=== PATIENT | female | born 1995 | race Caucasian/White ===

== ENCOUNTER 2019-11-24 15:34 | Emergency (ER) | payer MEDICAID ==
[~2019-11-24] VITALS: Ht 157.5 cm; Wt 65.8 kg
[2019-11-24 15:35] VITALS: BP 127/89
[2019-11-24] MEDS ORDERED: IBUPROFEN 400 MG TAB PO ONE (16:10)
[2019-11-24] MEDS ORDERED: ACETAMINOPHEN 325 MG TAB PO ONE (16:10)
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
[2019-11-24 17:29] VITALS: BP 147/88
--- NOTE | 2019-11-24 17:29 | NUR ---
Patient discharged with v/s stable. Written and verbal after care instructions given and explained. Patient verbalized understanding. Ambulatory with [facility] [place] [id number] in custody. All questions addressed prior to discharge. Advised to follow up with PMD.
== END 2019-11-24 17:29 ==
LOC: MED 15:34
DX: G44.209 Tension-type headache, unspecified, not intractable (principal); R07.89 Other chest pain; V49.9XXA Car occupant (driver) (passenger) injured in unspecified traffic accident, initial encounter; Y93.89 Activity, other specified; Y92.410 Unspecified street and highway as the place of occurrence of the external cause; Y99.8 Other external cause status
CPT/HCPCS: 71045; 81025; 99283